=== PATIENT | male | born 1970 | race Caucasian/White ===

== ENCOUNTER 2023-10-17 06:52 | Day surgery (SDC) | payer MEDICAID ==
[~2023-10-17] VITALS: Ht 170.2 cm; Wt 97.5 kg
[2023-10-17] MEDS ORDERED: MEPERIDINE 100 MG INJ. 100 MG/ML VIAL ONE (07:54)
[2023-10-17] MEDS ORDERED: fentaNYL CITRATE/PF 100 MCG/2 ML AMP ONE (07:54)
[2023-10-17] MEDS ORDERED: MIDAZOLAM HCL 5 MG/5 ML VIAL ONE (07:55)
[2023-10-17 11:27] VITALS: O2SAT 97
[2023-10-17 12:27] VITALS: BP_SYST 112; PULSE 70; RESP 16
== END 2023-10-17 10:28 | disposition home or self-care (01) ==
LOC: SDS 06:52 → SMU 06:56 → SDS 10:28
PROVIDERS: ATTEND Internal Medicine Gastroenterology
DX: K62.5 Hemorrhage of anus and rectum (principal); K64.8 Other hemorrhoids; D12.4 Benign neoplasm of descending colon; K63.5 Polyp of colon; F17.210 Nicotine dependence, cigarettes, uncomplicated; Z79.899 Other long term (current) drug therapy
CPT/HCPCS: 45380; 99152; 45385; 88305; G0378; J2250; J3010; J2175